=== PATIENT | female | born 1980 | race Hispanic/Latino ===

== ENCOUNTER 2025-03-08 10:55 | Emergency (ER) | payer OTHER ==
[~2025-03-08] VITALS: Ht 167.6 cm; Wt 110.2 kg
[2025-03-08 11:14] VITALS: BP 126/70; PULSE 75; RESP 22; TEMP 98.1; O2SAT 97
[2025-03-08] MEDS: ORPHENADRINE 60MG/2ML IM ONE (11:36)
--- NOTE | 2025-03-08 12:04 | ERN ---
General Chief Complaint: Hip Pain/Injury Stated Complaint: HIP PAIN Time Seen by MD: 10:56 Time Seen by Midlevel: 10:56 Source: patient History of Present Illness Initial Comments The patient is a 44-year-old female presenting to the emergency department with right lumbar pain that radiates down to her right knee. Patient states she was at work when she accidentally injured her lower back. She states she was pushing a trash can that fell forward. When she attempted to lift the trash can she felt a pop in her lower back and had pain. She denies any urinary/bowel incontinence. Denies any numbness or weakness to lower extremities. Allergies: Coded Allergies: No Known Drug Allergies (Unverified Allergy, Unknown, 03/08/25) Past Medical History Past Medical History: Hypertension Past Surgical History: Hysterectomy ROS Dictation CONSTITUTIONAL: Negative except for HPI HEAD/FACE: Negative except for HPI EENT: Negative except for HPI RESPIRATORY: Negative except for HPI GASTROINTESTINAL/ABDOMINAL: Negative except for HPI GENITOURINARY: Negative except for HPI MUSCULOSKELETAL: Negative except for HPI INTEGUMENTARY: Negative except for HPI NEUROLOGICAL/PSYCH: Negative except for HPI HEMATOLOGIC/LYMPHATIC: Negative except for HPI All Systems Negative, Except as noted above. 13 point review of systems assessed and all negative except for above. Physical Exam Physical Exam Dictation Vital Signs reviewed General Appearance: Alert, oriented x 3, no acute distress, well developed, nourished. Head and Face: non-traumatic. Eyes: PERRL, pink conjunctivas, eyelid no trauma, anterior chamber with arcus s enilis. Ears: Pinnas intact and no signs of trauma or erythema ear canals clear and no discharge TM no erythema Nose: No discharge, no bleeding. Oropharynx: Mouth normal, tongue pink, pharynx clear,no erythema, tonsils no exudates, no abscesses noted, mucous membrane moist Neck: Supple, non-tender, no thyromegaly, no masses, no JVD, no bruits Breast:Deferred Chest:No tenderness, no crepitus, no paradoxical movement, no retractions Lungs:Clear, well-ventilated, symmetric, no rales, no wheezing, no rhonchi, no stridor, good breath sounds bilaterally Heart: Regular rate, regular rhythm, no murmur, no gallops Vascular: no peripheral edema, Abdomen: Soft, positive bowel sounds, nondistended, no guarding, nontender, no rebound, no masses no hepatomegaly, no splenomegaly, no Collado's sign, no hernias. Rectal: Deferred Genital: Deferred Neurological: Normal speech, motor function intact, sensory function intact Musculoskeletal: Neck nontender, full range of motion, back nontender, full range of motion, Extremities: nontender, full range of motion Skin: Color pink, dry, no turgor, no rash, no lacerations, no abrasions, no contusions. Lymphatic: Deferred MDM MDM: Differential diagnosis: Fall, fracture, dislocation, musculoskeletal pain. Muscle strain There are no social concerns with this patient. Prescription drug management Prescriptions will include: Robaxin and Toradol Medical management and examination interpretation discussions were had by me with other qualified healthcare professionals as indicated for the patient's care. ED Course Orders Procedure Category Date Status Time Ketorolac PHA 03/08/25 Complete Tromethamine 30mg/Ml 11:30 Orphenadrine Citrate PHA 03/08/25 Complete (Norflex) 11:30 Pelvis 1-2vws RAD 03/08/25 Taken 11:04 Lumbar Spine 2-3vws RAD 03/08/25 Taken 11:04 Thoracic Spine 3vws RAD 03/08/25 Taken 11:04 Current Medications Medications (Trade) Dose Ordered Sig/Roxy Route PRN Reason Start Time Stop Time Status Last Admin Dose Admin Ketorolac Tromethamine (toRADol) 30 mg ONCE ONCE IM 03/08/25 11:30 03/08/25 11:31 DC 03/08/25 11:36 Orphenadrine Citrate (Norflex) 60 mg ONCE ONCE IM 03/08/25 11:30 03/08/25 11:31 DC 03/08/25 11:36 Vital Signs Date Time Temp Pulse Resp B/P (MAP) Pulse Ox O2 Delivery O2 Flow Rate FiO2 03/08/25 11:14 98.1 75 22 126/70 97 Room Air* 0 21 03/08/25 10:56 97.0 96 20 142/83 97 Room Air DX & DISP Disposition: Discharge Departure Impression: Primary Impression: Lumbar strain Additional Impression: Musculoskeletal pain Condition: Stable Scripts Ketorolac Tromethamine (Ketorolac Tromethamine) 10 Mg Tablet 1 TAB PO BID for pain for 5 Days, #10 TAB 0 Refills Prov: MIRI REDMAN PAC 03/08/25 Methocarbamol (Robaxin) 750 Mg Tab 1 TAB PO BID for 10 Days, #20 TAB 0 Refills Prov: MIRI REDMAN 03/08/25 Additional Instructions: Your x-ray of the upper and lower back do not show any acute fracture or dislocation. Your pelvis x-ray is normal. Your pain appears to be musculoskeletal in nature. I have given you a prescription for Toradol and muscle relaxers. Refrain from any strenuous activity for the next 24-48 hours. Follow up with your primary care doctor. Return to the ER for any new or worsening symptoms Referrals: SARA GODOY (PCP) I have reviewed the case, and I agree with, Diagnosis and Plan I performed the substantive portion of the visit. I have reviewed and personally made and approve the management plan that is documented in the note by myself or the [facility]. I acknowledge for responsibility for the patient's management plan. MIRI REDMAN PAC Mar 08, 2025 12:04
--- NOTE | 2025-03-08 12:16 | HMCIMG ---
EXAM: CR Pelvis, 1 View. CLINICAL HISTORY: fall COMPARISON: None provided. FINDINGS: BONES: No acute fracture or aggressive appearing osseous lesion. JOINTS: No dislocation. The joint spaces are normal. SOFT TISSUES: The soft tissues are unremarkable. IMPRESSION: No acute osseous abnormality. /[place]
--- NOTE | 2025-03-08 12:16 | HMCIMG ---
EXAM: CR Thoracic Spine, 3 View. CLINICAL HISTORY: fall COMPARISON: None provided. FINDINGS: BONES: No acute fracture or aggressive appearing osseous lesion. DISCS / DEGENERATIVE CHANGES: Mild thoracic spondylosis, and mild multilevel degenerative disc disease. SOFT TISSUES: The paraspinal soft tissue lines are unremarkable. The visualized lungs are clear. MISCELLANEOUS: Visualization of the upper thoracic spine is limited on the lateral view by overlying structures. IMPRESSION: 1. No acute findings. /[place]
--- NOTE | 2025-03-08 12:20 | HMCIMG ---
EXAM: CR Lumbar Spine, 3 View. CLINICAL HISTORY: fall COMPARISON: None provided. FINDINGS: BONES: No acute fracture or aggressive appearing osseous lesion. ALIGNMENT: Alignment is within normal limits. No significant scoliosis. DISCS / DEGENERATIVE CHANGES: The disc spaces are preserved. SOFT TISSUES: The soft tissues are unremarkable. IMPRESSION: No acute lumbar spine abnormality evident. /[place]
== END 2025-03-08 12:53 | disposition home or self-care (01) ==
LOC: EDH 10:55
DX: S39.012A Strain of muscle, fascia and tendon of lower back, initial encounter (principal); I10 Essential (primary) hypertension; Z90.710 Acquired absence of both cervix and uterus; W19.XXXA Unspecified fall, initial encounter; Y99.0 Civilian activity done for income or pay; Y93.89 Activity, other specified; Y92.89 Other specified places as the place of occurrence of the external cause
CPT/HCPCS: 99284; 72100; 72170; 72072; 96372; J1885; J2360